=== PATIENT | female | born 1970 | race Caucasian/White ===

== ENCOUNTER 2019-11-14 07:03 | Outpatient (CLI) | payer BC, SELFPAY ==
[2019-11-14 07:42] LABS: Anion Gap 13.5 (5-19); Blood Urea Nitrogen 8 mg/dL (6-20); Calcium 9.8 mg/dL (8.5-10.5); Carbon Dioxide 27 mmol/L (22-29); Chloride 98 mmol/L (98-107); Cholesterol 228 mg/dL (0-200); Glomerular Filtration Rate 105.8 mL/min (90-130); Glucose 180 mg/dL (65-115); HDL Cholesterol 43 mg/dL (60-100); LDL Cholesterol Calculated 160 mg/dL (50-129); LDL HDL Ratio 3.72 RATIO (0.00-3.22); Osmolality Calculated 278 mOsm/kg (285-295); Potassium 4.5 mmol/L (3.5-5.1); Sodium 134 mmol/L (136-145); Triglycerides 126 mg/dL (0-150)
[2019-11-14 07:56] LABS: Estmated Average Glucose 200; Hemoglobin A1C 8.6 % (4.0-6.0)
== END 2019-11-14 07:04 | disposition home or self-care (01) ==
LOC: LAB 07:06
PROVIDERS: Family Provider Registered Nurse; PCP Registered Nurse; Visit Provider Registered Nurse
DX: I10 Essential (primary) hypertension (principal); E78.5 Hyperlipidemia, unspecified
CPT/HCPCS: 80048; 80061; 83036

== ENCOUNTER 2019-12-26 08:43 | Outpatient (CLI) | payer BC, SELFPAY ==
--- NOTE | 2019-12-26 08:56 | US_ITS ---
WS: [id number] RIGHT UPPER QUADRANT ULTRASOUND HISTORY: RUQ TENDERNESS COMPARISON: None available. Liver: 17.2 cm in length. Normal size liver. Increased attenuation from hepatic steatosis. No mass id entified. Gallbladder: Normally distended gallbladder with no stones or wall thickening. CBD: 0.4 cm Pancreas: Head and tail are not visualized. The body is negative. Right kidney: 10.7 cm in length. Normal echogenicity with no mass or hydronephrosis. Aorta and IVC: Unremarkable. No ascites. US/US gall bladder [id number] IMPRESSION: 1. Normal gallbladder. 2. Moderate hepatic steatosis. Poor visualization of the entire liver.
[2019-12-26 09:52] LABS: Alanine Aminotransferase 42 U/L (0-33); Alkaline Phosphatase 67 IU/L (35-105); Aspartate Amino Transferase 24 U/L (0-32); Total Bilirubin 0.3 mg/dL (0.15-1.2)
== END 2019-12-26 08:44 | disposition home or self-care (01) ==
PROVIDERS: PCP Nurse Practitioner Family; Visit Provider Nurse Practitioner Family
DX: E78.2 Mixed hyperlipidemia (principal); R10.811 Right upper quadrant abdominal tenderness
CPT/HCPCS: 76705; 80076

== ENCOUNTER 2020-02-13 10:37 | Outpatient (CLI) | payer BC, SELFPAY ==
[2020-02-13 11:13] LABS: Anion Gap 14.5 (5-19); Blood Urea Nitrogen 12 mg/dL (6-20); Calcium 9.8 mg/dL (8.5-10.5); Carbon Dioxide 29 mmol/L (22-29); Chloride 97 mmol/L (98-107); Chol HDL Ratio 3.42 mg/dL (0.0-4.40); Cholesterol 164 mg/dL (0-200); Glomerular Filtration Rate 88.6 mL/min (90-130); Glucose 105 mg/dL (65-115); HDL Cholesterol 48 mg/dL (60-100); LDL Cholesterol Calculated 99 mg/dL (50-129); LDL HDL Ratio 2.06 RATIO (0.00-3.22); Osmolality Calculated 278 mOsm/kg (285-295); Potassium 4.5 mmol/L (3.5-5.1); Sodium 136 mmol/L (136-145); Triglycerides 84 mg/dL (0-150)
[2020-02-13 12:53] LABS: Estmated Average Glucose 171; Hemoglobin A1C 7.6 % (4.0-6.0)
== END 2020-02-13 10:38 | disposition home or self-care (01) ==
LOC: LAB 10:40
PROVIDERS: PCP Nurse Practitioner Family; Visit Provider Nurse Practitioner Family
DX: E11.65 Type 2 diabetes mellitus with hyperglycemia (principal); E78.5 Hyperlipidemia, unspecified; I10 Essential (primary) hypertension
CPT/HCPCS: 80048; 80061; 83036

== ENCOUNTER 2020-03-11 11:29 | Outpatient (CLI) | payer BC, SELFPAY ==
--- NOTE | 2020-03-11 11:37 | XRR_ITS ---
PROCEDURE INFORMATION: Exam: XR Thoracic Spine, 3 Views Exam date and time: 03/11/2020 11:50 AM Age: 49 years old Clinical indication: Pain in thoracic spine; Additional info: Thoracic pain x 2 months TECHNIQUE: Imaging protocol: XR of the thoracic spine, 3 views. COMPARISON: No relevant prior studies available. FINDINGS: Vertebrae: Normal. No acute fracture. Normal alignment. Soft tissues: Unremarkable. XR/XR thoracic spine 3V* [id number] IMPRESSION: No acute findings.
== END 2020-03-11 11:30 | disposition home or self-care (01) ==
LOC: RAD 11:33
PROVIDERS: PCP Nurse Practitioner Family; Visit Provider Nurse Practitioner Family
DX: M54.6 Pain in thoracic spine (principal)
CPT/HCPCS: 72072

== ENCOUNTER 2020-03-24 10:34 | Outpatient (CLI) | payer BC, SELFPAY ==
--- NOTE | 2020-03-24 10:40 | US_ITS ---
WS: [id number] INDICATION: Palpable abnormality TECHNIQUE: Ultrasound soft tissue FINDINGS: Ultrasound soft tissue to the area of palpable abnormality. No evidence of pathologic subcu taneous mass or lesion. Small well-circumscribed echogenic lipoma measuring 1.3 x 1.0 x 1.2 cm in the area of palpable abnormality right lower back. US/US soft tissue/extremity [id number] IMPRESSION: Small echogenic well-circumscribed lipoma measuring 1.3 x 1.0 x 1.2 cm
== END 2020-03-24 10:35 | disposition home or self-care (01) ==
LOC: US 10:35
PROVIDERS: PCP Nurse Practitioner Family; Visit Provider Nurse Practitioner Family
DX: R22.9 Localized swelling, mass and lump, unspecified (principal)
CPT/HCPCS: 76882

== ENCOUNTER → 2020-04-22 11:15 | Outpatient (BNVA) | payer BC, SELFPAY | PROVIDERS: PCP Nurse Practitioner Family; Visit Provider Nurse Practitioner Family | DX: Z11.59 Encounter for screening for other viral diseases (principal); Z20.828 Contact with and (suspected) exposure to other viral communicable diseases; J06.9 Acute upper respiratory infection, unspecified | CPT/HCPCS: 87635 ==

== ENCOUNTER → 2020-06-23 16:01 | Outpatient (BNVA) | payer BC, SELFPAY | PROVIDERS: PCP Nurse Practitioner Family; Visit Provider Nurse Practitioner Family | DX: E11.42 Type 2 diabetes mellitus with diabetic polyneuropathy (principal); Z79.4 Long term (current) use of insulin | CPT/HCPCS: 83036 ==

== ENCOUNTER → 2021-01-11 14:38 | Outpatient (BNVA) | payer BC, SELFPAY | PROVIDERS: PCP Nurse Practitioner Family; Visit Provider Registered Nurse | DX: B37.3 Candidiasis of vulva and vagina (principal); E11.65 Type 2 diabetes mellitus with hyperglycemia; I10 Essential (primary) hypertension; E11.9 Type 2 diabetes mellitus without complications; N76.0 Acute vaginitis; B96.89 Other specified bacterial agents as the cause of diseases classified elsewhere | CPT/HCPCS: 80053; 81000; 83036; 85025 ==

== ENCOUNTER → 2021-07-07 14:59 | Outpatient (BNVA) | payer BC, SELFPAY | PROVIDERS: PCP Nurse Practitioner Family; Visit Provider Registered Nurse | DX: E11.65 Type 2 diabetes mellitus with hyperglycemia (principal) | CPT/HCPCS: 83036 ==

== ENCOUNTER 2021-09-02 08:32 | Emergency (ER) | payer BC, SELFPAY ==
[2021-09-02 08:36] VITALS: BP 181/110; PULSE 90; RESP 16; TEMP 36.9; O2SAT 99; BMI 47.2
--- NOTE | 2021-09-02 08:46 | ECG_ITS ---
[facility] Test Date: 2021-09-02 Pat Name: Marina Mendoza Department: Room: Gender: Female Teletype Or Varitype Keyboard Operator: : [id number] Requested By: Charly Fulton Order Number: [id number] Rafa MD: Edgardo Cobb M.D. Measurements Intervals [place] Rate: 80 P: 59 UT: 161 QRS: 57 QRSD: 96 T: 47 QT: 358 QTc: 414 Interpretive Statements SINUS RHYTHM POSSIBLE LEFT ATRIAL ENLARGEMENT [-0.1mV P-WAVE IN V1/V2] LOW QRS VOLTAGE IN PRECORDIAL LEADS [QRS DEFLECTION < 1.0 mV IN CHEST LEADS] PATTERN CONSISTENT WITH PULMONARY DISEASE No previous ECG available for comparison Electronically Signed On 09-02-2021 20:51:18 BUTTER LIQUEFIER by Edgardo Cobb M.D. [email or web address] [id number] f
--- NOTE | 2021-09-02 08:46 | XR_ITS ---
WS: [id number] Portable AP upright chest, 09/02/2021 Clinical Data: cp Comparison: None. Findings: No nodules, masses or effusions are seen. The heart is normal. The pulmonary vascularity is not increased. No pneumonia or pneumothorax is seen. Monitor leads are on the chest wall. XR/XR chest 1V portable [id number] Impression: Negative chest.
--- NOTE | 2021-09-02 08:47 | W.ED.CHESTPA ---
Documented by User: JONO Bernabe 09/02/21 11:50 HPI - Chest Pain General: Chief Complaint: Chest Pain Stated Complaint: cp Time Seen by Provider: 09/02/21 08:39 History of Present Illness: Patient states that she has some left arm pain last night hurt with movement her arm and she thought maybe she had pulled something. And she is at work today and started hurting down to her left chest area that had a blood pressure check to the shoulder it was high. She was encouraged to come to the ER for evaluation. Pertinent past history: other (Hypertension diabetes) Exacerbating factors: other (Pain arm hurts were through with range of motion) Associated symptoms: Deny abdominal pain, dyspnea, fever(s), nausea or vomiting Review of Systems Const: Denies: fever(s), chills or body aches Eyes: Denies: eye discomfort ENMT: Denies: throat pain Card: Reports: chest pain (Pain left side chest hurts some with palpation.) Resp: Denies: dyspnea GI: Denies: abdominal pain, nausea or vomiting Musc: Reports: extremity pain (Left arm hurts with range of motion) Skin/Breast: Denies: rash Neuro: Denies: headache(s) Psych: Reports: anxiety (Lots going on in her life she says); Denies: depression or suicidal ideation PFS ED PFSH: Medical History (Updated 09/02/21 @ 11:46 by JONO Bernabe) Diabetes Hyperlipidemia Social History Smoking and tobacco status: never smoked Physical Exam Narrative: EXAM NARRATIVE: patient does not appear in any acute distress, is breathing normally. Is not diaphoretic. Const: COMMON NORMALS: no acute distress, patient oriented x3 and alert HENMT: COMMON NORMALS: normocephalic HEAD & SCALP: normocephalic Eye: COMMON NORMALS: EOMs intact bilaterally Neck/C-Spine: COMMON NORMALS: no JVD Resp: COMMON NORMALS: normal respiratory effort and No use of accessory muscles Cardio: COMMON NORMALS: no JVD GI: INSPECTION: Yes normal to inspection Extremity: COMMON NORMALS: normal to inspection and full ROM NARRATIVE EXTREMITY EXAM: There is pain from the shoulder down to the elbow area on the medial aspect of the upper arm. Left side. Some pain with palpation to the chest area. Neuro: COMMON NORMALS: patient oriented x3 SENSORIUM/ORIENTATION: Yes alert Psych: COMMON NORMALS: mental status grossly normal Skin: COMMON NORMALS: no rashes or lesions noted GENERAL SKIN EXAM: no rashes or lesions noted Course Vital Signs: Vital signs: Vital Signs Temperature 98.5 F 09/02/21 08:36 Pulse Rate 78 09/02/21 12:00 Respiratory Rate 20 H 09/02/21 12:00 Blood Pressure 136/84 09/02/21 12:00 Pulse Oximetry 96 09/02/21 12:00 MDM - Chest Pain Medical Decision Making Patient presents today with left arm pain atypical chest pain. Patient takes her lisinopril at night and her blood pressure continues to be high here today. Patient has been going through a lot of stress here lately. Patient's blood sugars are getting under better control because she is making some positive changes in her life. She does get seen at the [facility] on a regular basis. Patient's laboratory studies were all negative during visit here troponin trending downward from 8-6. Patient had no pain presently. Pain that she did have was reproducible on exam. Patient has left arm pain and atypical chest pain there was a reproducible pain. Patient encouraged to follow-up primary care provider take medication, check blood pressures daily and report those readings back to primary care provider also continue to work on diet to get blood sugars under good control. Patient encouraged to follow back up here if she has any worsening chest pain Lab Data : 09/02/21 09:16 09/02/21 09:16 Radiology Impressions Chest X-Ray 09/02/21 08:46 Impression: Negative chest. Laboratory Results WBC 7.0 10^3/uL (4.0-10.0) 09/02/21 09:16 RBC 4.89 10^6/uL (4.1-5.3) 09/02/21 09:16 Hgb 14.2 g/dL (11.5-15.3) 09/02/21 09:16 Hct 42.9 % (37.0-47.0) 09/02/21 09:16 MCV 87.7 fl (81-99) 09/02/21 09:16 MCH 29.0 pg (28.0-34.0) 09/02/21 09:16 MCHC 33.1 g/dL (30.0-36.0) 09/02/21 09:16 RDW 12.2 % (12.1-15.1) 09/02/21 09:16 Plt Count 358 10^3/cmm (130-400) 09/02/21 09:16 MPV 9.7 fL (7.4-10.4) 09/02/21 09:16 Neut % (Auto) 56.5 % 09/02/21 09:16 Lymph % (Auto) 35.4 % 09/02/21 09:16 [place] % (Auto) 6.4 % 09/02/21 09:16 Eos % (Auto) 1.0 % 09/02/21 09:16 Baso % (Auto) 0.4 % 09/02/21 09:16 Neut # (Auto) 3.94 10^3/uL (1.8-7.7) 09/02/21 09:16 Lymph # (Auto) 2.5 10^3/uL (0.8-4.8) 09/02/21 09:16 [place] # (Auto) 0.5 10^3/uL (0.2-0.9) 09/02/21 09:16 Eos # (Auto) 0.1 10^3/uL (0.0-0.8) 09/02/21 09:16 Baso # (Auto) 0.0 10^3/uL (0.0-0.1) 09/02/21 09:16 Nucleated RBC % (auto) 0 % 09/02/21 09:16 Nucleated RBCs # 0.0 /100WBC 09/02/21 09:16 PT 13.40 SECONDS (12.1-14.9) 09/02/21 09:16 INR 0.99 (0.8-1.2) 09/02/21 09:16 Sodium 135 mmol/L (136-145) L 09/02/21 09:16 Potassium 4.1 mmol/L (3.5-5.1) 09/02/21 09:16 Chloride 97 mmol/L (98-107) L 09/02/21 09:16 Carbon Dioxide 24 mmol/L (22-29) 09/02/21 09:16 Anion Gap 18.1 (5-19) 09/02/21 09:16 BUN 13 mg/dL (6-20) 09/02/21 09:16 Creatinine 0.7 mg/dL (0.5-0.9) 09/02/21 09:16 GFR Calculation 87.9 mL/min (90-130) L 09/02/21 09:16 Glucose 177 mg/dL (65-115) H 09/02/21 09:16 Calculated Osmolality 284 mOsm/kg (285-295) L 09/02/21 09:16 Calcium 9.8 mg/dL (8.5-10.5) 09/02/21 09:16 Total Bilirubin 0.2 mg/dL (0.15-1.2) 09/02/21 09:16 AST 38 U/L (0-32) H 09/02/21 09:16 ALT 43 U/L (0-33) H 09/02/21 09:16 Alkaline Phosphatase 76 IU/L (35-105) 09/02/21 09:16 Troponin T Baseline 8 ng/L (0-10) 09/02/21 09:16 Troponin T 120 Minute 6.23 ng/L (0-10) 09/02/21 10:52 Delta Troponin T -1.77 ABS# (0-10) L 09/02/21 10:52 Total Protein 7.1 g/dL (6.6-8.7) 09/02/21 09:16 Albumin 4.2 g/dL (3.5-5.2) 09/02/21 09:16 Globulin 2.9 g/dL (1.3-4.6) 09/02/21 09:16 Urine Color Yellow (Yellow) 09/02/21 10:56 Urine Appearance Clear (CLEAR) 09/02/21 10:56 Urine pH 5 (5-7) 09/02/21 10:56 Ur Specific [place] 1.020 (1.005-1.030) 09/02/21 10:56 Urine Protein Neg (Negative) 09/02/21 10:56 Urine Glucose (UA) Norm (Normal) 09/02/21 10:56 Urine Ketones Negative (Negative) 09/02/21 10:56 Urine Blood Neg (Negative) 09/02/21 10:56 Urine Nitrate Negative (Negative) 09/02/21 10:56 Urine Bilirubin Neg (Negative) 09/02/21 10:56 Urine Urobilinogen Norm mg/dL (Negative) 09/02/21 10:56 Ur Leukocyte Esterase Negative (Negative) 09/02/21 10:56 EKG Data EKG 1: Computer generated interpretation: EKG reveals sinus rhythm possible left atrial enlargement. Ventricular rate 80 bpm TX interval 161 ms QRS duration 96 ms QT is 358 ms EKG 2: Computer generated interpretation: Time of EKG 1043 review 1044. Ventricular rate 78 bpm TX interval 160 ms QRS duration 99 ms QT is 375 ms shows sinus rhythm. Discharge Plan Discharge Patient Disposition: Home Clinical Impression: Atypical chest pain, Arm pain, left Condition: Stable Prescriptions: New Celebrex 100 mg capsule 100 mg PO BID Qty: 20 0RF No Action Victoza 2-Trevor 0.6 mg/0.1 mL (18 mg/3 mL) pen injector See Rx Instructions .ROUTE .COMPLEX Qty: 6 1RF Dose Instruction: ADMINISTER 1.8 MG UNDER THE SKIN DAILY Rx Instructions: ADMINISTER 1.8 MG UNDER THE SKIN DAILY metformin 500 mg tablet 500 mg PO BID 90 Days Qty: 180 0RF (DME) pen needle, diabetic [BD Kiki 2nd Gen Pen Needle] 32 gauge x 5/32 needle See Rx Instructions .ROUTE .COMPLEX Qty: 100 0RF Dose Instruction: USE ONCE DAILY DIRECTED Rx Instructions: USE ONCE DAILY DIRECTED lisinopril 10 mg tablet 10 mg PO DAILY 0RF Discharge Orders: Discharge ED (Routine); Ordered 09/02/21 Ordered By: Charly Fulton Referrals: Jenifer Flores FNP [Primary Care Provider] - Discharge Diet: Usual diet Discharge Activity: Increase activity as tolerated Activity Restrictions/Additional Instructions: Follow-up with medical provider as directed. Take medications as prescribed. Return to the ER or your medical provider if condition worsens. Please read and understand discharge instructions. If any questions ask please. Monitor blood pressure daily and if readings stay high report back to your primary care provider those readings. Also continue to work to keep blood sugar under good control. Coding Level of Care Code ED Director Audience Marketing for Chg Fwd Exam Comprehensive Documented by User: Chuy Sheikh DO 09/02/21 12:39 HPI - Chest Pain General: Chief Complaint: Chest Pain Stated Complaint: cp Time Seen by Provider: 09/02/21 08:39 [facility] ED PFSH: Medical History (Updated 09/02/21 @ 11:46 by JONO Bernabe) Diabetes Hyperlipidemia Social History Smoking and tobacco status: never smoked Course Vital Signs: Vital signs: Vital Signs Temperature 98.5 F 09/02/21 08:36 Pulse Rate 78 09/02/21 12:00 Respiratory Rate 20 H 09/02/21 12:00 Blood Pressure 136/84 09/02/21 12:00 Pulse Oximetry 96 09/02/21 12:00 MDM - Chest Pain Medical Decision Making Patient presents today with left arm pain atypical chest pain. Patient takes her lisinopril at night and her blood pressure continues to be high here today. Patient has been going through a lot of stress here lately. Patient's blood sugars are getting under better control because she is making some positive changes in her life. She does get seen at the [facility] on a regular basis. Patient's laboratory studies were all negative during visit here troponin trending downward from 8-6. Patient had no pain presently. Pain that she did have was reproducible on exam. Patient has left arm pain and atypical chest pain there was a reproducible pain. Patient encouraged to follow-up primary care provider take medication, check blood pressures daily and report those readings back to primary care provider also continue to work on diet to get blood sugars under good control. Patient encouraged to follow back up here if she has any worsening chest pain Chart reviewed and patient discussed with midlevel. Agree with assessment and plan. Lab Data : 09/02/21 09:16 09/02/21 09:16 Radiology Impressions Chest X-Ray 09/02/21 08:46 Impression: Negative chest. Laboratory Results WBC 7.0 10^3/uL (4.0-10.0) 09/02/21 09:16 RBC 4.89 10^6/uL (4.1-5.3) 09/02/21 09:16 Hgb 14.2 g/dL (11.5-15.3) 09/02/21 09:16 Hct 42.9 % (37.0-47.0) 09/02/21 09:16 MCV 87.7 fl (81-99) 09/02/21 09:16 MCH 29.0 pg (28.0-34.0) 09/02/21 09:16 MCHC 33.1 g/dL (30.0-36.0) 09/02/21 09:16 RDW 12.2 % (12.1-15.1) 09/02/21 09:16 Plt Count 358 10^3/cmm (130-400) 09/02/21 09:16 MPV 9.7 fL (7.4-10.4) 09/02/21 09:16 Neut % (Auto) 56.5 % 09/02/21 09:16 Lymph % (Auto) 35.4 % 09/02/21 09:16 [place] % (Auto) 6.4 % 09/02/21 09:16 Eos % (Auto) 1.0 % 09/02/21 09:16 Baso % (Auto) 0.4 % 09/02/21 09:16 Neut # (Auto) 3.94 10^3/uL (1.8-7.7) 09/02/21 09:16 Lymph # (Auto) 2.5 10^3/uL (0.8-4.8) 09/02/21 09:16 [place] # (Auto) 0.5 10^3/uL (0.2-0.9) 09/02/21 09:16 Eos # (Auto) 0.1 10^3/uL (0.0-0.8) 09/02/21 09:16 Baso # (Auto) 0.0 10^3/uL (0.0-0.1) 09/02/21 09:16 Nucleated RBC % (auto) 0 % 09/02/21 09:16 Nucleated RBCs # 0.0 /100WBC 09/02/21 09:16 PT 13.40 SECONDS (12.1-14.9) 09/02/21 09:16 INR 0.99 (0.8-1.2) 09/02/21 09:16 Sodium 135 mmol/L (136-145) L 09/02/21 09:16 Potassium 4.1 mmol/L (3.5-5.1) 09/02/21 09:16 Chloride 97 mmol/L (98-107) L 09/02/21 09:16 Carbon Dioxide 24 mmol/L (22-29) 09/02/21 09:16 Anion Gap 18.1 (5-19) 09/02/21 09:16 BUN 13 mg/dL (6-20) 09/02/21 09:16 Creatinine 0.7 mg/dL (0.5-0.9) 09/02/21 09:16 GFR Calculation 87.9 mL/min (90-130) L 09/02/21 09:16 Glucose 177 mg/dL (65-115) H 09/02/21 09:16 Calculated Osmolality 284 mOsm/kg (285-295) L 09/02/21 09:16 Calcium 9.8 mg/dL (8.5-10.5) 09/02/21 09:16 Total Bilirubin 0.2 mg/dL (0.15-1.2) 09/02/21 09:16 AST 38 U/L (0-32) H 09/02/21 09:16 ALT 43 U/L (0-33) H 09/02/21 09:16 Alkaline Phosphatase 76 IU/L (35-105) 09/02/21 09:16 Troponin T Baseline 8 ng/L (0-10) 09/02/21 09:16 Troponin T 120 Minute 6.23 ng/L (0-10) 09/02/21 10:52 Delta Troponin T -1.77 ABS# (0-10) L 09/02/21 10:52 Total Protein 7.1 g/dL (6.6-8.7) 09/02/21 09:16 Albumin 4.2 g/dL (3.5-5.2) 09/02/21 09:16 Globulin 2.9 g/dL (1.3-4.6) 09/02/21 09:16 Urine Color Yellow (Yellow) 09/02/21 10:56 Urine Appearance Clear (CLEAR) 09/02/21 10:56 Urine pH 5 (5-7) 09/02/21 10:56 Ur Specific [place] 1.020 (1.005-1.030) 09/02/21 10:56 Urine Protein Neg (Negative) 09/02/21 10:56 Urine Glucose (UA) Norm (Normal) 09/02/21 10:56 Urine Ketones Negative (Negative) 09/02/21 10:56 Urine Blood Neg (Negative) 09/02/21 10:56 Urine Nitrate Negative (Negative) 09/02/21 10:56 Urine Bilirubin Neg (Negative) 09/02/21 10:56 Urine Urobilinogen Norm mg/dL (Negative) 09/02/21 10:56 Ur Leukocyte Esterase Negative (Negative) 09/02/21 10:56 Discharge Plan Discharge Patient Disposition: Home Clinical Impression: Atypical chest pain, Arm pain, left Condition: Stable Prescriptions: New Celebrex 100 mg capsule 100 mg PO BID Qty: 20 0RF No Action Victoza 2-Trevor 0.6 mg/0.1 mL (18 mg/3 mL) pen injector See Rx Instructions .ROUTE .COMPLEX Qty: 6 1RF Dose Instruction: ADMINISTER 1.8 MG UNDER THE SKIN DAILY Rx Instructions: ADMINISTER 1.8 MG UNDER THE SKIN DAILY metformin 500 mg tablet 500 mg PO BID 90 Days Qty: 180 0RF (DME) pen needle, diabetic [BD Kiki 2nd Gen Pen Needle] 32 gauge x 5/32 needle See Rx Instructions .ROUTE .COMPLEX Qty: 100 0RF Dose Instruction: USE ONCE DAILY DIRECTED Rx Instructions: USE ONCE DAILY DIRECTED lisinopril 10 mg tablet 10 mg PO DAILY 0RF Discharge Orders: Discharge ED (Routine); Ordered 09/02/21 Ordered By: Charly Fulton Referrals: Jenifer Flores, JONO [Primary Care Provider] - Discharge Diet: Usual diet Discharge Activity: Increase activity as tolerated Activity Restrictions/Additional Instructions: Follow-up with medical provider as directed. Take medications as prescribed. Return to the ER or your medical provider if condition worsens. Please read and understand discharge instructions. If any questions ask please. Monitor blood pressure daily and if readings stay high report back to your primary care provider those readings. Also continue to work to keep blood sugar under good control. Coding Level of Care Code ED Director Audience Marketing for Del Fwd Exam Comprehensive
--- NOTE | 2021-09-02 09:05 | PC.NURSE ---
pt placed on continuous spo2, nibp, and cm.
[2021-09-02 09:27] LABS: Basophils % 0.4 %; Eosinophils # 0.1 10^3/uL (0.0-0.8); Hematocrit 42.9 % (37.0-47.0); Hemoglobin 14.2 g/dL (11.5-15.3); Lymphocytes # 2.5 10^3/uL (0.8-4.8); Lymphocytes % 35.4 %; Mean Corpuscular HGB Conc 33.1 g/dL (30.0-36.0); Mean Corpuscular Volume 87.7 fl (81-99); Mean Platelet Volume 9.7 fL (7.4-10.4); Monocytes # 0.5 10^3/uL (0.2-0.9); Monocytes % 6.4 %; Neutrophils # 3.94 10^3/uL (1.8-7.7); Neutrophils % 56.5 %; Nucleated Red Blood Cells % 0 %; Platelet Count 358 10^3/cmm (130-400); Red Blood Count 4.89 10^6/uL (4.1-5.3); Red Cell Distribution Width 12.2 % (12.1-15.1)
[2021-09-02 09:46] LABS: Alanine Aminotransferase 43 U/L (0-33); Albumin Level 4.2 g/dL (3.5-5.2); Alkaline Phosphatase 76 IU/L (35-105); Anion Gap 18.1 (5-19); Aspartate Amino Transferase 38 U/L (0-32); Blood Urea Nitrogen 13 mg/dL (6-20); Calcium 9.8 mg/dL (8.5-10.5); Carbon Dioxide 24 mmol/L (22-29); Chloride 97 mmol/L (98-107); Globulin 2.9 g/dL (1.3-4.6); Glomerular Filtration Rate 87.9 mL/min (90-130); Glucose 177 mg/dL (65-115); Osmolality Calculated 284 mOsm/kg (285-295); Potassium 4.1 mmol/L (3.5-5.1); Sodium 135 mmol/L (136-145); Total Bilirubin 0.2 mg/dL (0.15-1.2); Total Protein 7.1 g/dL (6.6-8.7)
[2021-09-02 09:51] LABS: INR 0.99 (0.8-1.2)
[2021-09-02 09:52] LABS: Troponin(5th) Baseline 8 ng/L (0-10)
--- NOTE | 2021-09-02 10:01 | PC.NURSE ---
while at doorway pt is in nad. pt denies any needs at this time.
--- NOTE | 2021-09-02 10:47 | ECG_ITS ---
[facility] Test Date: 2021-09-02 Pat Name: Marina Mendoza Department: Room: Gender: Female Community Relations Rep: : 1970 Requested By: Charly Fulton Order Number: [id number] Rafa MD: Edgardo Cobb M.D. Measurements Intervals [place] Rate: 78 P: 51 [place]: 162 QRS: 37 QRSD: 99 T: 40 QT: 375 QTc: 428 Interpretive Statements SINUS RHYTHM LOW QRS VOLTAGE IN PRECORDIAL LEADS [QRS DEFLECTION < 1.0 mV IN CHEST LEADS] PATTERN CONSISTENT WITH PULMONARY DISEASE Compared to ECG 09/02/2021 08:42:39 No significant changes Electronically Signed On 09-02-2021 20:53:08 MANAGEMENT TECHNICIAN by Edgardo Cobb M.D. [id number] f
[2021-09-02 11:00] VITALS: BP 121/60; PULSE 81; RESP 19; O2SAT 96
[2021-09-02 11:02] VITALS: BP 124/80; PULSE 83; RESP 16; O2SAT 96
[2021-09-02 11:25] LABS: Add Urine Microscopic? NO; Charge for UA Resulting for Rev
[2021-09-02 11:26] LABS: Troponin 5 2HR 6.23 ng/L (0-10)
[2021-09-02 11:28] LABS: Troponin 5 2HR Delta -1.77 ABS# (0-10)
[2021-09-02 11:32] LABS: Bilirubin Urine Neg (Negative); Blood Urine Neg (Negative); Glucose Urine UA Norm (Normal); Ketones Urine Negative (Negative); Leukocyte Esterase Urine Negative (Negative); Nitrate Urine Negative (Negative); Protein Urine Neg (Negative); Urine Appearance Clear (CLEAR); Urine Color Yellow (Yellow); Urobilinogen Urine Norm (Negative); pH Urine 5 (5-7)
[2021-09-02 12:00] VITALS: BP 136/84; PULSE 78; RESP 20; O2SAT 96
== END 2021-09-02 12:06 | disposition home or self-care (01) ==
PROVIDERS: Emergency Provider Nurse Practitioner Family; PCP Nurse Practitioner Family
DX: R07.89 Other chest pain (principal); M79.602 Pain in left arm; Z79.84 Long term (current) use of oral hypoglycemic drugs; E11.9 Type 2 diabetes mellitus without complications; E78.5 Hyperlipidemia, unspecified
CPT/HCPCS: 71045; 80053; 81003; 84484; 85025; 85610; 93005; 99283

== ENCOUNTER → 2021-11-04 15:33 | Outpatient (BNVA) | payer BC, SELFPAY | PROVIDERS: PCP Nurse Practitioner Family; Visit Provider Registered Nurse | DX: E11.9 Type 2 diabetes mellitus without complications (principal); E78.5 Hyperlipidemia, unspecified; R53.83 Other fatigue | CPT/HCPCS: 80061; 82306; 82607; 83036 ==

== ENCOUNTER → 2022-03-14 16:07 | Outpatient (BNVA) | payer OTHER, SELFPAY | PROVIDERS: PCP Nurse Practitioner Family; Visit Provider Registered Nurse | DX: E11.9 Type 2 diabetes mellitus without complications (principal); I10 Essential (primary) hypertension; E53.8 Deficiency of other specified B group vitamins; E55.9 Vitamin D deficiency, unspecified | CPT/HCPCS: 80053; 82306; 82607; 83036 ==

== ENCOUNTER → 2022-06-15 09:10 | Outpatient (BNVA) | payer OTHER, SELFPAY | PROVIDERS: PCP Registered Nurse; Visit Provider Registered Nurse | DX: R53.83 Other fatigue (principal); E11.65 Type 2 diabetes mellitus with hyperglycemia; E55.9 Vitamin D deficiency, unspecified; E11.9 Type 2 diabetes mellitus without complications; E53.8 Deficiency of other specified B group vitamins | CPT/HCPCS: 80053; 80061; 82306; 82607; 83036; 86038; 86140; 86431 ==

== ENCOUNTER 2022-09-30 11:37 | Outpatient (CLI) | payer OTHER, SELFPAY ==
--- NOTE | 2022-09-30 12:00 | MM_ITS ---
WS: [id number] BILATERAL SCREENING DIGITAL TOMOSYNTHESIS MAMMOGRAM WITH CAD HISTORY: Z12.31 - Encounter for screening mammogram for malignancy. COMPARISON: 01/04/2019 Bilateral CC and MLO views with tomosynthesis and synthetic mammography submitted. Computer aided det ection analyzed. Breast composition: There are scattered areas of fibroglandular density. No suspicious masses, microc alcifications or architectural distortion. MM/[place] [id number] IMPRESSION: BI-RADS: 1-Negative FOLLOW UP: 1 Year Follow-up
== END 2022-09-30 11:38 | disposition home or self-care (01) ==
PROVIDERS: PCP Registered Nurse; Visit Provider Registered Nurse
DX: Z12.31 Encounter for screening mammogram for malignant neoplasm of breast (principal)
CPT/HCPCS: 77063; 77067

== ENCOUNTER → 2023-01-10 10:41 | Outpatient (BNVA) | payer OTHER, SELFPAY | PROVIDERS: PCP Registered Nurse; Visit Provider Registered Nurse | DX: E11.9 Type 2 diabetes mellitus without complications (principal); E78.5 Hyperlipidemia, unspecified | CPT/HCPCS: 80053; 80061; 82043; 83036 ==

== ENCOUNTER 2023-03-30 14:01 | Emergency (ER) | payer OTHER, BC, SELFPAY ==
[2023-03-30 14:19] VITALS: BP 167/85; PULSE 76; TEMP 36.3; O2SAT 99; BMI 42.5
[2023-03-30 14:33] LABS: Basophils % 0.5 %; Eosinophils # 0.2 10^3/uL (0.0-0.8); Eosinophils % 1.9 %; Hematocrit 41.8 % (36-47); Lymphocytes # 3.5 10^3/uL (0.8-4.8); Mean Corpuscular Volume 87.8 fl (85-98); Mean Platelet Volume 9.2 fL (7.4-10.4); Monocytes # 0.5 10^3/uL (0.2-0.9); Monocytes % 5.3 %; Neutrophils # 4.54 10^3/uL (1.8-7.7); Nucleated Red Blood Cells % 0 %; Platelet Count 406 10^3/cmm (157-399); Red Blood Count 4.76 10^6/uL (3.85-5.65); Red Cell Distribution Width 12.6 % (12.1-15.1); White Blood Count 8.73 10^3/uL (3.29-11.43)
--- NOTE | 2023-03-30 14:54 | W.ED.ABDPA2 ---
HPI - Abdominal Pain General: Chief Complaint: Abdominal Pain Stated Complaint: abd pain Time Seen by Provider: 03/30/23 14:39 Source: patient Mode of arrival: ambulatory Limitations: no limitations History of Present Illness: Patient is a nice 52-year-old female with a history of biliary colic here for severe right upper quadrant abdominal pain. Patient states she has dealt with intermittent symptoms for several months that seem to progressively be worsening. Patient states she had a CT scan performed at another facility that showed cholelithiasis. She met with Dr. Rose recently and has an elective cholecystectomy scheduled for later next month. She states this episode of biliary colic has never been quite this bad. She is having nausea without episodes of emesis. She has had intermittent diarrhea since the biliary colic started. She has not been running fevers. Denies urinary symptoms. MD elicited complaint: abdominal pain Pertinent past history: other (Cholelithiasis) Onset (ago): month(s) Pain Consistency: intermittent Location: Epigastric and RUQ Severity: severe Quality: cramping and sharp Radiation: none Migration to: no migration Exacerbating factors: eating Relieving factors: nothing Associated Symptoms: Reports diarrhea and nausea; Denies chills, dysuria, fever(s), hematemesis and vomiting Related Data: Patient : No Review of Systems Const: Denies: fever(s), chills, body aches, fatigue or malaise Card: Denies: chest pain Resp: Denies: dyspnea GI: Reports: abdominal pain, nausea and diarrhea; Denies: vomiting or hematemesis : Denies: flank pain, difficulty voiding, dysuria, urinary frequency, urinary urgency or urinary hesitancy Musc: Denies: neck pain, back pain, extremity pain or joint pain Skin/Breast: Denies: rash Neuro: Denies: headache(s), numbness in extremities, weakness in extremities or sensory changes PFSH ED PFSH: Medical History Diabetes Hyperlipidemia Surgical History History of x3 History of hysterectomy Family History Grandmother Cancer maternal Grandfather Cancer maternal Father Diabetes Mother Hypertension Denies family history of CAD (coronary artery disease) Clotting disorder Dementia Hyperlipidemia Chronic kidney disease (CKD) Lung disease Stroke Social History Smoking and tobacco status: heavy tobacco smoker Alcohol intake: never Substance/Drug Use: never Adopted: No Caregiver/support person: No Lives independently: No Household members: spouse Marital status: service: No Current occupational status: employed Sexually active: Yes Do you think of yourself as: Straight/Heterosexual Current gender identity: Female Physical Exam Const: COMMON NORMALS: patient oriented x3, no limitations, alert and well nourished GENERAL APPEARANCE: cooperative and in distress (appears uncomfortable) NUTRITIONAL APPEARANCE: obese morbidly obese ORIENTATION/CONSCIOUSNESS: Yes awake, Yes oriented to person, Yes oriented to place and Yes oriented to time Eye: COMMON NORMALS: no scleral icterus Resp: COMMON NORMALS: normal respiratory effort and clear to auscultation bilaterally AUSCULTATION: clear to auscultation bilaterally Cardio: COMMON NORMALS: regular rate and regular rhythm RATE: regular rate RHYTHM: regular rhythm GI: COMMON NORMALS: Normal to inspection, nondistended, normoactive bowel sounds present, Soft to palpation, No hepatosplenomegaly present and no masses INSPECTION: Yes normal to inspection AUSCULTATION: Yes normoactive bowel sounds PALPATION: Yes Soft to palpation, Yes Tenderness to palpation present (GI) (epigastric) Details: RUQ (+Hansen's), No Guarding due to palpation present (GI), No Rigid due to palpation and Yes No hepatosplenomegaly present : COMMON NORMALS: Yes no CVA tenderness BLADDER/KIDNEY EXAM: Yes no CVA tenderness Back/Pelvis: COMMON NORMALS: no CVA tenderness, thoracic and lumbar spine normal to inspection, no thoracic nor lumbar tenderness and thoraco-lumbar ROM normal Extremity: COMMON NORMALS: normal to inspection GENERAL: Yes normal exam except as noted Neuro: COMMON NORMALS: patient oriented x3, moves all extremities, no focal motor deficits, no sensory deficits noted and gait normal SENSORIUM/ORIENTATION: Yes alert, Yes oriented to person, Yes oriented to place and Yes oriented to time Skin: COMMON NORMALS: no rashes or lesions noted GENERAL SKIN EXAM: no rashes or lesions noted Course Consultations: Consultation #1: Dr. Blackmon-recommends continuing to follow up with Dr. Rose in office and try to get elective selina scheduled sooner; states there is no reason for emergent cholecystectomy today Vital Signs: Vital signs: Vital Signs Temperature 97.4 F L 03/30/23 14:19 Pulse Rate 72 03/30/23 16:03 Respiratory Rate 19 H 03/30/23 15:57 Blood Pressure 125/85 03/30/23 16:03 Pulse Oximetry 98 03/30/23 16:03 Oxygen Delivery Me thod Room Air 03/30/23 16:03 MDM - Abdominal Pain Medical Decision Making Patient does feel better after IV medications given here although is still in some discomfort. Vital signs are stable. Her blood work is unremarkable. She has a normal white count normal LFTs. Gallbladder ultrasound showing cholelithiasis with stone in the neck of her gallbladder. No acute cholecystitis. I did discuss with surgeon Dr. Blackmon as patient has been dealing with this now for 4 months and symptoms are progressively worsening. We discussed labs/US findings. He states there is no indication for emergent cholecystectomy and recommends she continue to follow-up with Dr. Rose to see if he can perform elective selina sooner than late Apr. She will be given pain and nausea medications to go home with. Strict return ED precautions given. Lab Data 03/30/23 14:21 03/30/23 14:21 Labs/Radiology: Laboratory Results WBC 8.73 10^3/uL (3.29-11.43) 03/30/23 14:21 RBC 4.76 10^6/uL (3.85-5.65) 03/30/23 14:21 Hgb 13.80 g/dL (11.27-16.99) 03/30/23 14:21 Hct 41.8 % (36-47) 03/30/23 14:21 MCV 87.8 fl (85-98) 03/30/23 14:21 MCH 29.0 pg (27-33) 03/30/23 14: MCHC 33.0 g/dL (30-55) 03/30/23 14:21 RDW 12.6 % (12.1-15.1) 03/30/23 14:21 Plt Count 406 10^3/cmm (157-399) H 03/30/23 14:21 MPV 9.2 fL (7.4-10.4) 03/30/23 14:21 Neut % (Auto) 52.0 % 03/30/23 14:21 Lymph % (Auto) 40.0 % 03/30/23 14:21 Ripley % (Auto) 5.3 % 03/30/23 14:21 Eos % (Auto) 1.9 % 03/30/23 14:21 Baso % (Auto) 0.5 % 03/30/23 14:21 Neut # (Auto) 4.54 10^3/uL (1.8-7.7) 03/30/23 14:21 Lymph # (Auto) 3.5 10^3/uL (0.8-4.8) 03/30/23 14:21 Ripley # (Auto) 0.5 10^3/uL (0.2-0.9) 03/30/23 14:21 Eos # (Auto) 0.2 10^3/uL (0.0-0.8) 03/30/23 14:21 Baso # (Auto) 0.0 10^3/uL (0.0-0.1) 03/30/23 14:21 Nucleated RBC % (auto) 0 % 03/30/23 14: Nucleated RBCs # 0.0 /100WBC 03/30/23 14:21 Sodium 138 mmol/L (136-145) 03/30/23 14:21 Potassium 4.2 mmol/L (3.5-5.1) 03/30/23 14:21 Chloride 101 mmol/L (98-107) 03/30/23 14:21 Carbon Dioxide 26 mmol/L (22-29) 03/30/23 14:21 Anion Gap 15.2 (5-19) 03/30/23 14:21 BUN 17 mg/dL (6-20) 03/30/23 14:21 Creatinine 0.7 mg/dL (0.5-0.9) 03/30/23 14:21 GFR Calculation 87.5 mL/min (90-130) L 03/30/23 14:21 Glucose 108 mg/dL (65-115) 03/30/23 14:21 Calculated Osmolality 288 mOsm/kg (285-295) 03/30/23 14:21 Calcium 9.4 mg/dL (8.5-10.5) 03/30/23 14:21 Total Bilirubin 0.2 mg/dL (0.15-1.2) 03/30/23 14:21 AST 14 U/L (0-32) 03/30/23 14:21 ALT 15 U/L (0-33) 03/30/23 14:21 Alkaline Phosphatase 71 U/L (35-105) 03/30/23 14:21 Total Protein 7.3 g/dL (6.6-8.7) 03/30/23 14:21 Albumin 4.3 g/dL (3.5-5.2) 03/30/23 14:21 Globulin 3.0 g/dL (1.3-4.6) 03/30/23 14:21 Lipase 24 U/L (13-60) 03/30/23 14:21 Urine Color Yellow (Yellow) 03/30/23 16:01 Urine Appearance Clear (CLEAR) 03/30/23 16:01 Urine pH 5 (5-7) 03/30/23 16:01 Ur Specific Henderson 1.020 (1.005-1.030) 03/30/23 16:01 Urine Protein Neg (Negative) 03/30/23 16:01 Urine Glucose (UA) Norm (Normal) 03/30/23 16:01 Urine Ketones Negative (Negative) 03/30/23 16:01 Urine Blood Neg (Negative) 03/30/23 16:01 Urine Nitrate Negative (Negative) 03/30/23 16:01 Urine Bilirubin Neg (Negative) 03/30/23 16:01 Urine Urobilinogen Norm mg/dL (Negative) 03/30/23 16:01 Ur Leukocyte Esterase Negative (Negative) 03/30/23 16:01 Discharge Plan Discharge Patient Disposition: Home Clinical Impression: Biliary colic Cholelithiasis Qualifiers: Cholelithiasis location: gallbladder Cholecystitis presence: without cholecystitis Biliary obstruction: without biliary obstruction Qualified Code(s): K80.20 - Calculus of gallbladder without cholecystitis without obstruction Condition: Stable Prescriptions: New hydrocodone-acetaminophen 5-325 mg tablet 1 tab PO Q6H PRN (Reason: pain) Qty: 14 0RF ondansetron 4 mg tablet,disintegrating 4 mg PO Q8H PRN (Reason: nausea and vomiting) Qty: 14 0RF No Action tirzepatide 5 mg/0.5 mL pen injector 5 mg SUBCUT .weekly Qty: 6 0RF Rx Instructions: ON MONDAY ibuprofen 200 mg Capsule 800 mg PO Q6H PRN (Reason: Pain) pantoprazole 20 mg tablet,delayed release (DR/EC) 20 mg PO DAILY metformin 1,000 mg tablet 1,000 mg PO BID lisinopril 10 mg tablet 10 mg PO BID Discharge Orders: Discharge ED (Routine); Ordered 03/30/23 Ordered By: Yamini Hyman Referrals: Chandu Yang FNP [Primary Care Provider] - Patient Instructions: Cholelithiasis, Biliary Colic (ED), Opioid Safety, Pain Management Activity Restrictions/Additional Instructions: As we discussed I will send you home with pain and nausea medications you may use for severe discomfort. We discussed dietary restrictions including no fatty/greasy foods. As we discussed you need to return to the emergency department for worsening pain not controlled by your pain medications, yellowing to your skin or eyes, repetitive episodes of vomiting, fevers greater than 100.4, generally feeling worse or unwell, or any other concerns you may have. I have placed another referral for case management to try to get you follow-up with Dr. Rose to see if he cannot perform a sooner elective cholecystectomy. Coding Level of Care Code ED Link Trainer Operator for Del Myers
--- NOTE | 2023-03-30 14:58 | US_ITS ---
WS: [id number] RIGHT UPPER QUADRANT ULTRASOUND HISTORY: RUQ pain COMPARISON: 12/26/2019 Liver: 14.5 cm in length. Normal size liver and echogenicity. No bile duct dilatation or mass. Portal Vein: Normal hepatopetal flow with monophasic waveform. Gallbladder: Normally distended gallbladder. In the neck of the gallbladder there is a hyperechoic fo cus which does not shadow. This is probably a stone at the gallbladder neck. After reviewing the [facility] of 09/04/2022 a stone was also noted in the gallbladder neck at that time. There is no acute brady cholecystic fluid. CBD: 0.6 cm Pancreas: Normal size and echogenicity. Right kidney: 11.0 cm in length. Normal size and echogenicity. No hydronephrosis or mass. Aorta and IVC: Unremarkable abdominal aorta and IVC. No ascites. IMPRESSION: 1. Cholelithiasis. Calcifications noted within the gallbladder neck. No evidence for acute cholecysti tis. 2. Normal common bile duct.
[2023-03-30 15:01] LABS: Alanine Aminotransferase 15 U/L (0-33); Albumin Level 4.3 g/dL (3.5-5.2); Alkaline Phosphatase 71 U/L (35-105); Anion Gap 15.2 (5-19); Aspartate Amino Transferase 14 U/L (0-32); Blood Urea Nitrogen 17 mg/dL (6-20); Calcium 9.4 mg/dL (8.5-10.5); Carbon Dioxide 26 mmol/L (22-29); Chloride 101 mmol/L (98-107); Creatinine Clr Calc Pharmacy 101.9794; Glomerular Filtration Rate 87.5 mL/min (90-130); Glucose 108 mg/dL (65-115); Lipase 24 U/L (13-60); Osmolality Calculated 288 mOsm/kg (285-295); Potassium 4.2 mmol/L (3.5-5.1); Sodium 138 mmol/L (136-145); Total Bilirubin 0.2 mg/dL (0.15-1.2); Total Protein 7.3 g/dL (6.6-8.7)
[2023-03-30] MEDS: sodium chloride 0.9% 1,000 ML 999 ML IV (15:56)
[2023-03-30 15:57] VITALS: RESP 19
[2023-03-30] MEDS: ondansetron 2 mg/ML SDV 2 mL 4 MG IVP (15:57)
[2023-03-30] MEDS: morphine 4 mg/mL SDV 1 mL IVP (15:57)
[2023-03-30 16:03] VITALS: BP 125/85; PULSE 72; O2SAT 98
[2023-03-30 16:11] LABS: Add Urine Microscopic? NO; Charge for UA Resulting for Rev
[2023-03-30 16:12] LABS: Bilirubin Urine Neg (Negative); Blood Urine Neg (Negative); Glucose Urine UA Norm (Normal); Ketones Urine Negative (Negative); Leukocyte Esterase Urine Negative (Negative); Nitrate Urine Negative (Negative); Protein Urine Neg (Negative); Urine Appearance Clear (CLEAR); Urine Color Yellow (Yellow); Urobilinogen Urine Norm (Negative); pH Urine 5 (5-7)
--- NOTE | 2023-03-31 08:20 | DCPLANNER ---
regional safety manager had message to schedule a follow up appointment for patient with general surgery. regional safety manager sent patients information to the front office staff at general surgery. Patients information will be printed and reviewed. Clinic will call patient with appointment information.
== END 2023-03-30 16:37 | disposition home or self-care (01) ==
PROVIDERS: Emergency Medicine; Emergency Provider Physician Assistant; PCP Registered Nurse
DX: K80.20 Calculus of gallbladder without cholecystitis without obstruction (principal); Z79.84 Long term (current) use of oral hypoglycemic drugs; F17.210 Nicotine dependence, cigarettes, uncomplicated; E11.9 Type 2 diabetes mellitus without complications; E78.5 Hyperlipidemia, unspecified
CPT/HCPCS: 36415; 76705; 80053; 81003; 83690; 85025; 96374; 96375; 99284; J2270; J2405; J7030

== ENCOUNTER 2023-05-08 05:36 | Day surgery (SDC) | payer BC, SELFPAY ==
[2023-05-08] VITALS (11 sets, daily range): BP systolic 90–151; BP diastolic 62–97; PULSE 72–97; RESP 14–24; TEMP 36.1–36.4; O2SAT 92–98; BMI 42.5
[2023-05-08] MEDS: sodium chloride 0.9% 1,000 ML 30 ML IV (06:18)
[2023-05-08 06:23] LABS: Glucose Point of Care 99 mg/dL (70-110)
--- NOTE | 2023-05-08 06:58 | PM.HP ---
Providers/Chief Complaint Primary Care Provider: JONO Shah Chief Complaint: K80.20 History of Present Illness Marina Mendoza is a 52 year old female Review of Systems General: Reports: 10 or more systems reviewed and unremarkable except in HPI and below Medications/Allergies Home Medications Medication Instructions Recorded Confirmed Last Taken Type tirzepatide 5 mg/0.5 mL 5 mg (0.5 mL) SUBCUT .weekly #6 mL 01/25/23 05/05/23 04/30/23 Rx subcutaneous pen injector hydrocodone 5 mg-acetaminophen 325 1 tab PO Q6H PRN pain #14 tabs 03/30/23 05/05/23 Unknown Rx mg tablet ibuprofen 200 mg capsule 800 mg PO Q6H PRN Pain 03/30/23 05/05/23 03/30/23 History ondansetron 4 mg disintegrating 4 mg PO Q8H PRN nausea and 03/30/23 05/05/23 Unknown Rx tablet vomiting #14 tabs pantoprazole 20 mg tablet,delayed 20 mg PO DAILY 03/30/23 05/05/23 Unknown History release lisinopril 10 mg tablet 10 mg PO BID 05/05/23 05/05/23 05/07/23 History metformin 1,000 mg tablet 1,000 mg PO QPM 05/05/23 05/05/23 05/07/23 History Allergies Allergy/AdvReac Type Severity Reaction Status Date / Time No Known Allergies Allergy Verified 04/12/23 08:49 PFSH Acute PFSH: Medical History Diabetes Hyperlipidemia Surgical History History of x3 History of hysterectomy Family History Grandmother Cancer maternal Grandfather Cancer maternal Father Diabetes Mother Hypertension Denies family history of CAD (coronary artery disease) Clotting disorder Dementia Hyperlipidemia Chronic kidney disease (CKD) Lung disease Stroke Social History Smoking and tobacco/nicotine status: never used tobacco/nicotine Alcohol intake: never Substance/Drug Use: never Adopted: No Caregiver/support person: No Lives independently: No Household members: spouse Marital status: service: No Current occupational status: employed Sexually active: Yes Do you think of yourself as: Straight/Heterosexual Current gender identity: Female Vitals/I&O/Wt Last Vital Signs Temp 97.3 F L 05/08/23 06:04 Pulse 74 05/08/23 06:04 Resp 18 05/08/23 06:04 BP 151/97 05/08/23 06:04 Pulse Ox 98 05/08/23 06:04 O2 Del Method Room Air 05/08/23 06:08 Weight last 48 hrs Weight 225 lb A&P Assessment and plan (1) Symptomatic cholelithiasis: Plan Laparoscopic cholecystectomy Attestations Medical Necessity Statement*: Home Coding Level of Care Code Acute Code for Chg Fwd Diagnoses Symptomatic cholelithiasis K80.20
[2023-05-08] MEDS: ceFAZolin 2,000 MG in sodium chloride 0.9% (plus) 50 ML 100 MG IV (06:59)
--- NOTE | 2023-05-08 07:16 | ANES.PREANE2 ---
Pre-Anesthetic Assessment Height/Weight: Height 1.55 m Weight 102.058 kg Temp Pulse Resp BP Pulse Ox O2 Del Method 97.3 F L 74 18 151/97 98 Room Air 05/08/23 06:04 05/08/23 06:04 05/08/23 06:04 05/08/23 06:04 05/08/23 06:04 05/08/23 06:08 Operation Date: 05/08/23 07:00 Proposed Procedures p Laparoscopic Cholecystectomy 86127,,K80.20(Not Applicable) - Aaron Rose DO Familial anesthetic complications: none Was Beta Saud taken within 24 hours: N/A Was Clonidine taken within 24 hours: N/A Last intake: Intake Last Liquid Date 05/07/23 Last Liquid Time 21:00 Last Solid Date 05/07/23 Last Solid Time 21:00 Social No alcohol and No tobacco Exam alert, oriented x 3, clear to auscultation bilaterally and regular rate & rhythm Airway Submandibular: within normal limits Cervical ROM: within normal limits Mallampati: Class II Dentition: chipped CV/HEM Hypertension GI Gastroesophageal Reflux Disease Metabolic Diabetes Mellitus and Morbid Obesity Neuropsych Neuropathy Anesthetic Plan ASA status: 3 Anesthesia: General Medications/Allergies Home Medications Medication Instructions Recorded Confirmed Last Taken Type tirzepatide 5 mg/0.5 mL 5 mg (0.5 mL) SUBCUT .weekly #6 mL 01/25/23 05/05/23 04/30/23 Rx subcutaneous pen injector hydrocodone 5 mg-acetaminophen 325 1 tab PO Q6H PRN pain #14 tabs 03/30/23 05/05/23 Unknown Rx mg tablet ibuprofen 200 mg capsule 800 mg PO Q6H PRN Pain 03/30/23 05/05/23 03/30/23 History ondansetron 4 mg disintegrating 4 mg PO Q8H PRN nausea and 03/30/23 05/05/23 Unknown Rx tablet vomiting #14 tabs pantoprazole 20 mg tablet,delayed 20 mg PO DAILY 03/30/23 05/05/23 Unknown History release lisinopril 10 mg tablet 10 mg PO BID 05/05/23 05/05/23 05/07/23 History metformin 1,000 mg tablet 1,000 mg PO QPM 05/05/23 05/05/23 05/07/23 History Allergies Allergy/AdvReac Type Severity Reaction Status Date / Time No Known Allergies Allergy Verified 04/12/23 08:49 Current Medications Generic Name Dose Route Start Last Admin Trade Name Freq PRN Reason Stop Dose Admin Sodium Chloride 1,000 mls @ 30 mls/hr 05/08/23 06:00 05/08/23 06:18 Sodium Chloride 0.9% IV 05/09/23 05:59 30 mls/hr .Q24H ROSANGELA Administration PFSH Anesthesia Medical History Diabetes Hyperlipidemia Surgical History History of x3 History of hysterectomy Family History Grandmother Cancer maternal Grandfather Cancer maternal Father Diabetes Mother Hypertension Denies family history of CAD (coronary artery disease) Clotting disorder Dementia Hyperlipidemia Chronic kidney disease (CKD) Lung disease Stroke Social History Smoking and tobacco/nicotine status: never used tobacco/nicotine Alcohol intake: never Substance/Drug Use: never Adopted: No Caregiver/support person: No Lives independently: No Household members: spouse Marital status: service: No Current occupational status: employed Sexually active: Yes Do you think of yourself as: Straight/Heterosexual Current gender identity: Female Data Anesthesia Cardiac Studies: No Data to Display
[2023-05-08] MEDS: lidocaine-epi 2% 20 mL INJ INJECTION (07:39)
--- NOTE | 2023-05-08 07:40 | P.OP_ITS ---
Operative Report Date of procedure: May 08, 2023 Pre-op diagnosis: Symptomatic cholelithiasis Post-op diagnosis: same Procedure done: Laparoscopic cholecystectomy Implants: None Specimens removed/disposition: gallbladder Surgeon: Aaron Rose DO Anesthesia: General Estimated blood loss (mL): 5 Complications: None apparent Brief History: This very pleasant 52-year-old female with symptomatic cholelithiasis. Laparoscopic cholecystectomy was indicated. The risk and benefits were explained and documented. Procedure: Patient was wheeled into the operative room and placed on the OR table in a supine position. Abdomen was inspected prepped and draped in usual sterile fashion. Time-out was performed and all present were in agreement. A 15 blade scalp was used to make a stab incision in the left upper quadrant and intra- abdominal insufflation was achieved using a Veress needle. After localizing the tissue incisions were made and a 5 millimeter trocar was placed into the umbilicus as well as 2 in the right upper quadrant. A 12 millimeter trocar was placed in the epigastrium. Gallbladder was grasped and elevated. The triangle of Calot was carefully dissected using blunt dissection and electrocautery until the triangle of Calot clearly identified. The cystic duct was clipped proximally and double clipped distally. The duct was then ligated proximally. The cystic artery was doubly clipped and ligated. The gallbladder was then removed from the liver bed using electrocautery. The gallbladder was removed from the abdomen using an Endo-Catch bag through the epigastric incision. The liver bed was inspected and no bleeding was seen. The abdomen was irrigated and suctioned. All ports removed. Skin was washed and dried. Incisions were closed with 4-0 Monocryl in a subcuticular interrupted fashion. Skin glue was applied. Patient tolerated the procedure well.
[2023-05-08] MEDS: fentaNYL 50 mcg/mL INJ 2mL IVP (08:05)
[2023-05-08] MEDS: HYDROcodone-acetaminophen 10-325 mg Tablet 1 TAB PO (08:56)
--- NOTE | 2023-05-08 12:51 | ANE.PACU2 ---
Inpatient post-anesthesia follow up: Airway intact: Yes Vital signs: Temperature 97.5 F Pulse Rate 72 Respiratory Rate 18 Blood Pressure 109/74 Pulse Oximetry 95 Oxygen Delivery Me thod Room Air Oxygen Flow Rate Fraction of Inspir ed Oxygen Hydration adequate: Yes Nausea and vomiting: No Pain level: 2 Mental status: Baseline
== END 2023-05-08 09:25 | disposition home or self-care (01) ==
PROVIDERS: PCP Registered Nurse; Visit Provider Surgery
PROC: 0FT44ZZ Resection of Gallbladder, Percutaneous Endoscopic Approach (ICD-10-PCS; CPT 47562; principal; 2023-05-08 07:00)
DX: K80.10 Calculus of gallbladder with chronic cholecystitis without obstruction (principal); I10 Essential (primary) hypertension; K21.9 Gastro-esophageal reflux disease without esophagitis; E66.01 Morbid (severe) obesity due to excess calories; Z68.41 Body mass index [BMI] 40.0-44.9, adult; E11.40 Type 2 diabetes mellitus with diabetic neuropathy, unspecified; E78.5 Hyperlipidemia, unspecified; Z79.84 Long term (current) use of oral hypoglycemic drugs
CPT/HCPCS: 47562; 36416; 82962; 88304; J0131; J0690; J1100; J1170; J2371; J2405; J2704; J2710; J3010; J3490; J7030

== ENCOUNTER → 2023-08-02 15:20 | Outpatient (BNVA) | payer BC, SELFPAY | PROVIDERS: PCP Registered Nurse; Visit Provider Registered Nurse | DX: E11.9 Type 2 diabetes mellitus without complications (principal); E53.8 Deficiency of other specified B group vitamins | CPT/HCPCS: 80053; 80061; 82607; 83036; 85025 ==

== ENCOUNTER 2023-10-26 07:21 | Day surgery (SDC) | payer BC, SELFPAY ==
[2023-10-26 07:49] VITALS: BP 156/91; PULSE 70; RESP 18; TEMP 36.6; O2SAT 95; BMI 43.4
[2023-10-26] MEDS: sodium chloride 0.9% 1,000 ML 30 ML IV (07:57)
[2023-10-26 08:03] LABS: Glucose Point of Care 107 mg/dL (70-110)
--- NOTE | 2023-10-26 08:58 | ANES.PREANE2 ---
Pre-Anesthetic Assessment Height/Weight: Height 1.55 m Weight 104.326 kg Temp Pulse Resp BP Pulse Ox O2 Del Method 97.9 F 70 18 156/91 95 Room Air 10/26/23 07:49 10/26/23 07:49 10/26/23 07:49 10/26/23 07:49 10/26/23 07:49 10/26/23 07:49 Operation Date: 10/26/23 08:45 Proposed Procedures p EGD(Not Applicable) - Aaron Rose DO Familial anesthetic complications: none Was Beta Saud taken within 24 hours: N/A Was Clonidine taken within 24 hours: N/A Last intake: Intake Last Liquid Date 10/25/23 Last Liquid Time 21:00 Last Solid Date 10/25/23 Last Solid Time 21:00 Social No alcohol and No tobacco Exam alert and oriented x 3 Airway Submandibular: within normal limits Cervical ROM: within normal limits Mallampati: Class I Dentition: full Pulmonary None reported CV/HEM Hypertension None reported Hepatic None reported Metabolic Diabetes Mellitus, Hyperlipidemia and Morbid Obesity [facility] [place] None reported Neuropsych None reported Anesthetic Plan ASA status: 3 Anesthesia: Anesthesia Evaluation, General and MAC Medications/Allergies Home Medications Medication Instructions Recorded Confirmed Last Taken Type tirzepatide 7.5 mg/0.5 mL 7.5 mg (0.5 mL) SUBCUT .weekly 90 08/10/23 10/25/23 10/14/23 Rx subcutaneous pen injector days #2 mL (Mounjaro) triamcinolone acetonide 0.1 % 1 applic topical BID PRN rash 10 10/16/23 10/25/23 10/25/23 Rx topical ointment days #30 grams lisinopril 10 mg tablet 10 mg PO BID 10/25/23 10/25/23 10/25/23 History Allergies Allergy/AdvReac Type Severity Reaction Status Date / Time No Known Allergies Allergy Verified 10/26/23 07:48 Current Medications Generic Name Dose Route Start Last Admin Trade Name Freq PRN Reason Stop Dose Admin Sodium Chloride 1,000 mls @ 30 mls/hr 10/26/23 07:30 10/26/23 07:57 Sodium Chloride 0.9% IV 10/27/23 07:29 30 mls/hr .Q24H ROSANGELA Administration PFSH Anesthesia Medical History Hyperlipidemia Diabetes Surgical History Hx laparoscopic cholecystectomy 05/08/23 Dr Rose History of x3 History of hysterectomy Family History Grandmother Cancer maternal Grandfather Cancer maternal Father Diabetes Mother Hypertension Denies family history of CAD (coronary artery disease) Clotting disorder Dementia Hyperlipidemia Chronic kidney disease (CKD) Lung disease Stroke Social History Smoking and tobacco/nicotine status: never used tobacco/nicotine Alcohol intake: never Substance/Drug Use: never Adopted: No Caregiver/support person: No Lives independently: No Household members: spouse Marital status: service: No Current occupational status: employed Sexually active: Yes Do you think of yourself as: Straight/Heterosexual Current gender identity: Female Data Anesthesia Cardiac Studies: No Data to Display
--- NOTE | 2023-10-26 09:13 | W.PM.OPSUD ---
Surgery/Procedure H&P Update DATE OF PROCEDURE: October 26, 2023 DATE H&P PERFORMED: 10/23/23 H&P UPDATE INFORMATION: I have reviewed H&P completed within last 30 days, I have examined patient prior to procedure and Changes to prior documentation as noted here CHANGES TO PREVIOUS DOCUMENTATION: Patient was able to come in for a 15-minute time slot to get just an EGD today. Colonoscopy will be done later PLANNED PROCEDURE: Operation Date: 10/26/23 08:45 Proposed Procedures p EGD(Not Applicable) - Aaron Rose DO
[2023-10-26 09:27] VITALS: BP 100/76; PULSE 80; RESP 12; TEMP 36.3; O2SAT 95
[2023-10-26 09:40] VITALS: BP 130/88; PULSE 64; RESP 18; O2SAT 100
--- NOTE | 2023-10-26 14:55 | ANE.PACU2 ---
Inpatient post-anesthesia follow up: Airway intact: Yes Vital signs: Temperature 97.4 F Pulse Rate 64 Respiratory Rate 18 Blood Pressure 130/88 Pulse Oximetry 100 Oxygen Delivery Me thod Room Air Oxygen Flow Rate 4 Fraction of Inspir ed Oxygen Hydration adequate: Yes Nausea and vomiting: No Pain level: 2 Mental status: Baseline
== END 2023-10-26 10:07 | disposition home or self-care (01) ==
PROVIDERS: PCP Registered Nurse; Visit Provider Surgery
PROC: 0DJ08ZZ Inspection of Upper Intestinal Tract, Via Natural or Artificial Opening Endoscopic (ICD-10-PCS; CPT 43235; principal; 2023-10-26 08:45)
DX: Z01.818 Encounter for other preprocedural examination (principal); K44.9 Diaphragmatic hernia without obstruction or gangrene; I10 Essential (primary) hypertension; E11.9 Type 2 diabetes mellitus without complications; E78.5 Hyperlipidemia, unspecified; E66.01 Morbid (severe) obesity due to excess calories; Z68.41 Body mass index [BMI] 40.0-44.9, adult
CPT/HCPCS: 36416; 43239; 82962; 88305; 88342; J2704; J7030

== ENCOUNTER 2023-11-29 14:30 | Outpatient (CLI) | payer BC, SELFPAY | END 2023-11-29 14:31 | disposition home or self-care (01) | PROVIDERS: PCP Registered Nurse; Visit Provider Registered Nurse | DX: R06.83 Snoring (principal); G47.30 Sleep apnea, unspecified | CPT/HCPCS: G0399 ==